=== PATIENT | female | born 1975 | race Caucasian/White ===

== ENCOUNTER 2023-02-01 09:35 | Emergency (ER) | payer MEDICAID, SELFPAY ==
[2023-02-01 09:50] VITALS: BP 123/75; PULSE 82; RESP 20; TEMP 37.6; O2SAT 97; BMI 32.9
--- NOTE | 2023-02-01 10:23 | ECG_ITS ---
[facility] Test Date: 2023-02-01 Pat Name: SHABNAM DORAN Department: Room: - Gender: Female Catcher Plug: : [id number] Requested By: [id number] Order Number: [id number] Reading MD: ENDER LOBATO Measurements Intervals [place] Rate: 80 P: 64 [place]: 148 QRS: 24 QRSD: 82 T: -30 QT: 364 QTc: 399 Interpretive Statements 1100 Sinus rhythm [address]/T wave changes, can't exclude inferolateral ischemia 9130 borderline ECG No previous ECG available for comparison Electronically Signed On 02-02-2023 7:21:44 EDT by ENDER LOBATO
[2023-02-01 10:31] LABS: Basophils Percent Auto 0.3 % (0.2-2.0); Eosinophils Absolute Auto 0.1 10^3/uL (0.0-0.7); Eosinophils Percent Auto 0.9 % (0.9-7.0); Hemoglobin 13.6 g/dL (12.0-16.0); Immature Granulocytes Pct Auto 0.7 % (0.0-0.5); Lymphocytes Absolute Auto 1.4 10^3/uL (1.2-3.8); Lymphocytes Percent Auto 9.2 % (20.5-60.0); Mean Corpuscular HGB Conc 32.4 g/dL (29.9-35.2); Mean Corpuscular Hemoglobin 29.4 pg (26.7-34.0); Mean Corpuscular Volume 90.9 fL (81.0-99.0); Mean Platelet Volume 10.2 fL (9.5-13.5); Monocytes Absolute Auto 0.8 10^3/uL (0.3-0.8); Monocytes Percent Auto 5.5 % (1.7-12.0); Neutrophils Absolute Auto 12.5 10^3/uL (1.4-6.5); Neutrophils Percent Auto 83.4 % (43.0-75.0); Platelet Count 413 10^3/uL (150-450); Red Blood Count 4.62 10^6/uL (4.20-5.40); Red Cell Distribution Width 12.7 % (11.0-15.0)
[2023-02-01] MEDS: KETOROLAC TROMETHAMINE 30 MG/ML VIAL 15 MG IVP (10:38)
[2023-02-01 10:57] LABS: Alanine Aminotransferase 68 U/L (14-59); Albumin Globulin Ratio 0.6; Albumin Level 3.3 g/dL (3.4-5.0); Alkaline Phosphatase 233 U/L (46-116); Anion Gap 12.7; Aspartate Amino Transferase 42 U/L (15-37); BUN Creatinine Ratio 14.9; Bilirubin Total 0.4 mg/dL (0.2-1.0); Calcium 9.4 mg/dL (8.5-10.1); Carbon Dioxide 28.2 mmol/L (21.0-32.0); Chloride 102 mmol/L (98-107); Estimated GFR (African America >60 (>=60); Estimated GFR (Non-African Ame >60 (>=60); Globulin 5.2 g/dL; Glucose 92 mg/dL (74-106); Potassium 3.9 mmol/L (3.5-5.1); Sodium 139 mmol/L (136-145); Total Protein 8.5 g/dL (6.4-8.2)
[2023-02-01 10:58] LABS: Troponin I High Sensitivity 5.6 pg/mL (4.0-51.3)
--- NOTE | 2023-02-01 11:05 | CT_ITS ---
The [address] [address] Patient Name: SHABNAM DORAN MRN: [id number] date: 1975 Sex: F Assigned Patient Location: ER Current Patient Location: ER Accession/Order Number: [id number] Exam Date: 02/01/2023 11:24 Report Date: 02/01/2023 11:59 At the request of: DANIKA MIRELES Procedure: CT abdomen pelvis w con EXAMINATION: CT abdomen pelvis w con HISTORY: status post appendectomy COMPARISON: TECHNIQUE: CT examination of the abdomen, and pelvis after the administration of intravenous contrast. Coronal and sagittal reformations were performed. Dose reduction techniques were achieved by using automated exposure control and/or adjustment of mA and/or kV according to patient size and/or use of iterative reconstruction technique. FINDINGS: The liver is fatty. The gallbladder is surgically absent. The pancreas, spleen, and adrenal glands are unremarkable. The bilateral kidneys demonstrate normal enhancement without hydronephrosis. The bilateral ureters demonstrate no gross abnormality or obstruction. There is a punctate calculus in the right kidney. The stomach and small bowel are unremarkable. The appendix is surgically absent. However, surrounding fat stranding and ill-defined hypodense fluid are identified measuring 3.6 x 3.0 cm. The colon is unremarkable. The bladder appears unremarkable. There is no evidence of aortic aneurysm present. No enlarged lymph nodes are seen. No free air or free fluid is seen. Osseous structures:Unremarkable. CT/CT abdomen pelvis w con IMPRESSION: Status post appendectomy with suggestion of evolving abscess as above. Fatty liver. Status post cholecystectomy. Electronically authenticated by: MIGUEL JURADO Date: 02/01/2023 11:59
--- NOTE | 2023-02-01 11:07 | ED_ITS ---
HPI - Abdominal Pain General Chief Complaint: Abdominal Pain Stated Complaint: HAD APPENDECTOMY-POSSIBLE INFECTION Time Seen by Provider: 02/01/23 10:16 Source: patient Mode of arrival: walk-in Limitations: no limitations History of Present Illness HPI narrative: The patient have history of appendectomy on January 19 that was complicated with an need for drainage because she had a burst appendix the patient had her drain is removed in January 24, she is presenting with sense of tiredness for the last few days and having chills, she have abdominal pain that is cramping all over the lower abdomen that comes and goes and is not specifically continuous She denies any burning with urination but she have pain whenever she have to go to the bathroom because of the muscle pain she admits that she does not take her medication except for ibuprofen sometimes at night Related Data Home Medications Medication Instructions Recorded Confirmed atorvastatin 80 mg tablet 80 mg PO BEDTIME 02/01/23 02/01/23 buspirone 10 mg tablet 10 mg PO TID 02/01/23 02/01/23 sertraline 100 mg tablet 100 mg PO Q24H 02/01/23 02/01/23 ticagrelor 60 mg tablet (Brilinta) 60 mg PO DAILY 02/01/23 02/01/23 Previous Rx's Medication Instructions Recorded amoxicillin 875 mg-potassium 1 tab PO BID #20 tabs 02/01/23 clavulanate 125 mg tablet dicyclomine 20 mg tablet 20 mg PO QID PRN abdominal pain 02/01/23 #14 tabs metronidazole 500 mg tablet 500 mg PO Q8H 7 days #21 tabs 02/01/23 Allergies Allergy/AdvReac Type Severity Reaction Status Date / Time codeine Allergy Intermediate Verified 02/01/23 09:55 Review of Systems ROS Status of ROS 10 or more systems reviewed and unremarkable except as noted in history and below PFSH PFSH Social History Smoking status: Current every day smoker Exam Narrative Exam Narrative: Nurses notes and vital signs reviewed and patient is not hypoxic. General: Well-appearing and in no apparent distress. Skin: Warm, dry, no pallor noted. No rash. Head: Normocephalic, atraumatic. Neck: Supple, non-tender. Eye: Pupils are equal, round and EOMI. No scleral icterus. Ears, Nose, Mouth, and Throat: TM are clear, no nasal mucosal hypertrophy. Oral mucosa is moist, no posterior oropharynx erythema, uvula is mid-line Cardiovascular: Regular Rate and Rhythm without murmur, gallop or rub. Respiratory: No accessory muscle use or respiratory distress. Lungs are clear to auscultation, no wheezing, rales or rhonchi Chest Wall: no tenderness Back: No midline thoracic or lumbar vertebral tenderness. No CVA tenderness Musculoskeletal: normal ROM, no calf or popliteal tenderness, no lower extremity edema/swelling GI: Abdomen is soft, the patient have healing wounds of laparoscopic surgery there is no tenderness on palpation in any specific point although the patient have some suprapubic tenderness Neurological: A&O x4. No cranial nerve dysfunction observed. No truncal ataxia. Moves all extremities. Sensation intact. Psychiatric: Cooperative and interactive. Normal mood and affect. Constitutional Vital Signs, click to edit/add: Last Vital Signs Temp 99.6 F 02/01/23 09:50 Pulse 82 02/01/23 09:50 Resp 20 02/01/23 09:50 BP 123/75 02/01/23 09:50 Pulse Ox 97 02/01/23 09:50 Course Vital Signs Vital signs: Vital Signs Temperature 99.6 F 02/01/23 09:50 Pulse Rate 82 02/01/23 09:50 Respiratory Rate 20 02/01/23 09:50 Blood Pressure 123/75 02/01/23 09:50 Pulse Oximetry 97 02/01/23 09:50 Temperature 99.6 F 02/01/23 09:50 Pulse Rate 82 02/01/23 09:50 Respiratory Rate 20 02/01/23 09:50 Blood Pressure 123/75 02/01/23 09:50 Pulse Oximetry 97 02/01/23 09:50 MDM - Abdominal Pain MDM Narrative Medical decision making narrative: Work-up showed some leukocytosis the CAT scan shows a possible abscess in the area where the appendix was although the patient was not specifically tender only in that area There is no tachycardia there is to the chemistry showed no acute significant pathology I put a call to speak with the doctor Bellamy the surgeon who did the surgery for the patient and he called back saying that he is not worried about the CAT scan result he just want the patient to continue antibiotic and follow-up with them the blood work-up was faxed to his office for further evaluation The patient was started with Zosyn in the ER she will be discharged home with Augmentin and Flagyl and the patient will be following up with him with instruction to come back to us in case of any new symptoms The patient is to follow up with primary care physician in next 2-3 days or to return to the emergency department should any of the signs or symptoms worsen or new symptoms develop. The patient agrees with the following Diagnosis and Treatment plan and the patient will be discharged home. Lab Data Labs: Lab Results 02/01/23 Range/Units 10:00 WBC 15.0 H (4.0-11.0) 10^3/uL RBC 4.62 (4.20-5.40) 10^6/uL Hgb 13.6 (12.0-16.0) g/dL Hct 42.0 (36.0-48.0) % MCV 90.9 (81.0-99.0) fL MCH 29.4 (26.7-34.0) pg MCHC 32.4 (29.9-35.2) g/dL RDW 12.7 (11.0-15.0) % Plt Count 413 (150-450) 10^3/uL MPV 10.2 (9.5-13.5) fL Neut % (Auto) 83.4 H (43.0-75.0) % Lymph % (Auto) 9.2 L (20.5-60.0) % [place] % (Auto) 5.5 (1.7-12.0) % Eos % (Auto) 0.9 (0.9-7.0) % Baso % (Auto) 0.3 (0.2-2.0) % Neut # (Auto) 12.5 H (1.4-6.5) 10^3/uL Lymph # (Auto) 1.4 (1.2-3.8) 10^3/uL [place] # (Auto) 0.8 (0.3-0.8) 10^3/uL Eos # (Auto) 0.1 (0.0-0.7) 10^3/uL Baso # (Auto) 0.0 (0.0-0.1) 10^3/uL Abs Immat Gran (auto) 0.10 H (0.00-0.03) 10^3/uL Imm/Tot Granulo (auto) 0.7 H (0.0-0.5) % Sodium 139 (136-145) mmol/L Potassium 3.9 (3.5-5.1) mmol/L Chloride 102 (98-107) mmol/L Carbon Dioxide 28.2 (21.0-32.0) mmol/L Anion Gap 12.7 BUN 10.0 (7.0-18.0) mg/dL Creatinine 0.67 (0.55-1.02) mg/dL Est GFR ( Amer) >60 (>=60) Est GFR (Non-Af Amer) >60 (>=60) BUN/Creatinine Ratio 14.9 Glucose 92 (74-106) mg/dL Calcium 9.4 (8.5-10.1) mg/dL Total Bilirubin 0.4 (0.2-1.0) mg/dL AST 42 H (15-37) U/L ALT 68 H (14-59) U/L Alkaline Phosphatase 233 H (46-116) U/L Troponin I High Sens 5.6 (4.0-51.3) pg/mL Total Protein 8.5 H (6.4-8.2) g/dL Albumin 3.3 L (3.4-5.0) g/dL Globulin 5.2 g/dL Albumin/Globulin Ratio 0.6 Serum HCG, Qual Negative (NEGATIVE) Discharge Plan Discharge Chief Complaint: Abdominal Pain Clinical Impression: Post-operative pain Patient Disposition: Home, Self-Care Time of Disposition Decision: 13:34 Prescriptions / Home Meds: New amoxicillin-pot clavulanate 875-125 mg tablet 1 tab PO BID Qty: 20 0RF dicyclomine 20 mg tablet 20 mg PO QID PRN (Reason: abdominal pain) Qty: 14 0RF metronidazole 500 mg tablet 500 mg PO Q8H 7 Days Qty: 21 0RF No Action Brilinta 60 mg tablet 60 mg PO DAILY buspirone 10 mg tablet 10 mg PO TID atorvastatin 80 mg tablet 80 mg PO BEDTIME sertraline 100 mg tablet 100 mg PO Q24H Instructions: Laparoscopic Appendectomy (DC) Additional Instructions: follow up with Dr Srivastava ? [id number], [address] [place] [address] tel:[phone] Stand Alone Forms: Portal Instructions Referrals: Physician,Non-Staff, MD [Primary Care Provider] - 1 week Discharge Date/Time: 02/01/23 13:53
[2023-02-01 11:17] LABS: HCG Qualitative NEGATIVE (NEGATIVE)
[2023-02-01] MEDS: PIPERACILLIN SODIUM/TAZOBACTAM 3.375 GM in 0.9 % SODIUM CHLORIDE 50 ML IV (12:41)
== END 2023-02-01 13:53 | disposition home or self-care (01) ==
PROVIDERS: Emergency Provider Emergency Medicine
DX: G89.18 Other acute postprocedural pain (principal); R10.9 Unspecified abdominal pain; Z98.890 Other specified postprocedural states; F17.210 Nicotine dependence, cigarettes, uncomplicated
CPT/HCPCS: 36415; 74177; 80053; 84484; 84703; 85025; 87040; 93005; 96365; 96375; 99285; Q9967

== ENCOUNTER 2023-02-14 11:53 | Outpatient (OUT) | payer MEDICAID, SELFPAY ==
[2023-02-14 12:25] LABS: Basophils Absolute Auto 0.1 10^3/uL (0.0-0.1); Basophils Percent Auto 0.7 % (0.2-2.0); Eosinophils Absolute Auto 0.3 10^3/uL (0.0-0.7); Eosinophils Percent Auto 3.5 % (0.9-7.0); Hemoglobin 13.9 g/dL (12.0-16.0); Immature Granulocytes Abs Auto 0.03 10^3/uL (0.00-0.03); Immature Granulocytes Pct Auto 0.4 % (0.0-0.5); Lymphocytes Absolute Auto 1.5 10^3/uL (1.2-3.8); Lymphocytes Percent Auto 18.4 % (20.5-60.0); Mean Corpuscular HGB Conc 33.1 g/dL (29.9-35.2); Mean Corpuscular Hemoglobin 30.1 pg (26.7-34.0); Mean Corpuscular Volume 90.9 fL (81.0-99.0); Mean Platelet Volume 10.7 fL (9.5-13.5); Monocytes Absolute Auto 0.5 10^3/uL (0.3-0.8); Monocytes Percent Auto 5.6 % (1.7-12.0); Neutrophils Absolute Auto 5.9 10^3/uL (1.4-6.5); Neutrophils Percent Auto 71.4 % (43.0-75.0); Platelet Count 293 10^3/uL (150-450); Red Blood Count 4.62 10^6/uL (4.20-5.40); White Blood Count 8.2 10^3/uL (4.0-11.0)
[2023-02-14 12:57] LABS: Estimated Average Glucose 111 mg/dL; Glycohemoglobin A1C 5.5 % (4.5-6.2)
[2023-02-14 14:39] LABS: Thyroid Stimulating Hormone 0.088 uIU/mL (0.358-3.740)
[2023-02-15 04:07] LABS: Estradiol 66.9 pg/mL (.); Progesterone 0.1 ng/mL (.); Prolactin 11.1 ng/mL (4.8-23.3)
== END 2023-02-14 11:54 | disposition home or self-care (01) ==
LOC: LAB 11:55
PROVIDERS: Visit Provider Physician Assistant
DX: Z78.0 Asymptomatic menopausal state (principal)
CPT/HCPCS: 36415; 82670; 83036; 84144; 84146; 84443; 85025